=== PATIENT | female | born 1940 | race Caucasian/White ===

== ENCOUNTER 2016-09-07 10:45 | Observation (INO) ==
[2016-09-07] MEDS ORDERED: Ondansetron 4 MG/2 ML VIAL IVP ONE (11:04)
[2016-09-07] MEDS ORDERED: *HR* Morphine 2 MG/ML SYRINGE IVP ONE (11:04)
[2016-09-07] MEDS ORDERED: Aspirin 81 MG TAB.CHEW PO ONE (11:04)
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
[2016-09-07 11:34] LABS: Basophils % 0.3 %; Eosinophils # 0.1 K/mcL (0.0-0.6); Eosinophils % 1.2 %; Hematocrit 43.8 % (35.3-44.9); Hemoglobin 14.7 g/dL (11.5-15.4); Immature Granulocytes % 0.1 % (0-4); Lymphocytes # 1.8 K/mcL (0.6-4.6); Lymphocytes % 23.6 %; Mean Corpuscular HGB Conc 33.6 g/dL (31.6-35.5); Mean Corpuscular Volume 98.2 fL (83.0-100.0); Mean Platelet Volume 11.8 fL (9.4-12.4); Monocytes # 0.5 K/mcL (0.0-1.3); Monocytes % 6.9 %; Neutrophils # 5.1 K/mcL (1.6-8.9); Platelet Count 127 K/mcL (140-400); Red Blood Count 4.46 M/mcL (3.82-4.97); Red Cell Distribution Width 13.3 % (11.5-14.5); Segmented Neutrophils % 67.9 %
[2016-09-07 11:39] LABS: INR 1.1; Prothrombin Time 11.8 Seconds (9.4-12.1)
[2016-09-07 11:41] LABS: Activated Partial Thrombo Time 21.2 Seconds (26.0-36.0)
[2016-09-07 12:12] LABS: BUN/Creatinine Ratio 23 (6-26); Blood Urea Nitrogen 18 mg/dL (7-20); Calcium 9.2 mg/dL (8.6-10.8); Carbon Dioxide 26 mEq/L (19-29); Chloride 108 mEq/L (98-109); Glucose 86 mg/dL (70-99); Osmolality,Calculated 297 (280-300); Potassium 4.5 mEq/L (3.5-4.5); Sodium 143 mEq/L (136-145); eGFR For African Americans > 60 (> 60); eGFR For Non-African Americans > 60 (> 60)
[2016-09-07] MEDS ORDERED: *HR* LORazepam 0.5 MG TABLET PO ONE (13:23)
[2016-09-07] MEDS ORDERED: Naloxone 0.4 MG/ML INJ IVP PRN (14:00)
[2016-09-07] MEDS ORDERED: GI Cocktail 40 ML EACH PO ONE (14:03)
[2016-09-07] MEDS ORDERED: ALPRAZolam 0.5 MG TABLET PO PRN (14:04)
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
--- NOTE | 2016-09-07 19:48 | Electrocardiograph Report ---
[place] [facility] Test Date: 2016-09-07 Pat Name: Micki Steiner Department: [id number] Room: 3B36 Gender: Senior Administrative Assistant: [id number] : 1940 Requested By: Bryan Garrison Order Number: [id number] Reading MD: Romeo Rodriguez MD Measurements Intervals [place] Rate: 72 P: 62 MS: 178 QRS: -1 QRSD: 93 T: 41 QT: 397 QTc: 420 Interpretive Statements SINUS RHYTHM MINIMAL VOLTAGE CRITERIA FOR LVH, CONSIDER NORMAL VARIANT Electronically Signed On 09-07-2016 19:47:22 EDT by Romeo Rodriguez MD
[2016-09-08 00:47] LABS: Immature Granulocytes % 0.2 % (0-4)
[2016-09-08 00:49] LABS: Basophils % 0.3 %; Hematocrit 38.3 % (35.3-44.9); Hemoglobin 12.9 g/dL (11.5-15.4); Immature Platelets 6.2 % (1.1-6.1); Lymphocytes # 1.1 K/mcL (0.6-4.6); Lymphocytes % 18.6 %; Mean Corpuscular HGB Conc 33.7 g/dL (31.6-35.5); Mean Corpuscular Hemoglobin 32.7 pg (28.0-33.3); Monocytes # 0.8 K/mcL (0.0-1.3); Monocytes % 12.7 %; Neutrophils # 4.1 K/mcL (1.6-8.9); Platelet Count 105 K/mcL (140-400); Red Blood Count 3.95 M/mcL (3.82-4.97); Red Cell Distribution Width 13.4 % (11.5-14.5); Segmented Neutrophils % 68.2 %
[2016-09-08 01:02] LABS: BUN/Creatinine Ratio 20 (6-26); Blood Urea Nitrogen 21 mg/dL (7-20); Calcium 8.4 mg/dL (8.6-10.8); Carbon Dioxide 26 mEq/L (19-29); Chloride 107 mEq/L (98-109); Chol/HDL Ratio 2.6 (0-4.9); Cholesterol 108 mg/dL (< 200); Glucose 139 mg/dL (70-99); HDL Cholesterol 41 mg/dL (40-59); LDL Cholesterol,Calculated 57 mg/dL (0-99); Osmolality,Calculated 293 (280-300); Potassium 3.7 mEq/L (3.5-4.5); Sodium 139 mEq/L (136-145); Triglycerides 52 mg/dL (< 150); eGFR For African Americans > 60 (> 60); eGFR For Non-African Americans 51 (> 60)
[2016-09-08] MEDS ORDERED: Regadenoson 0.4 MG/5 ML SYRINGE IVP ONE (06:07)
[2016-09-08] MEDS: Aspirin 81 MG TAB.CHEW PO SCH (09:46)
--- NOTE | 2016-09-08 13:42 | Nuclear Medicine Stress Report ---
Regadenoson Nuclear 2 Name: Micki Steiner Date of Study: 09/08/2016 Date: 1940 Ht: 60.0 in Medical Record#: [id number] Age: 76 Wt: 134.0 lb Gender: Female Order #: [id number] Location: [facility] Room: [facility] Supervising Provider: Adonay Puckett CNP Reading Physician: Torito Dickinson MD, [facility] Ordering Physician: Cally Stephens CNP Primary Care Physician: Genevieve Somers DO Stress Technologist: Grey Feliciano, [employer], [facility] Drywall Boardhanger: Beto Liao Indications: Chest Pain Impression: Baseline low blood pressure of 98/50. Patient had a hypotensive response to regadenoson with lowest BP 84/40. She was given IV fluids. BP increased to 98/45. Patient reported chest heaviness with regadenoson. This is a non-specific finding. Non-specific ST-T wave changes were noted with regadenoson. Gated LVEF > 70%. Perfusion imaging was negative for ischemia or infarct. Clinical correlation is recommended. History: Hypertension Hypercholesteremia Stress Test Summary: Stress Test Type: Pharmacologic Baseline Information: Initial Heart Rate: 78 Blood Pressure: 98/50 Stress Information: Test Terminated Due to (primary): As per protocol Maximum Blood Pressure: 98/48 Maximum Heart Rate: 102 Percent Maximum Heart Rate Achieved: 70 Double Product: [id number] Symptoms: Heaviness Nuclear Summary: SPECT myocardial perfusion imaging using Tc99m Sestamibi given intravenously was performed at rest and following cardiac stress testing. The resting images were obtained following initial dose of 11.6 mCi. Following stress an additional dose of 35.3 mCi was given at peak exercise or 30 seconds post regadenoson infusion. Findings: Stress Note * Resting ECG demonstrated normal sinus rhythm. * No baseline arrhythmias were noted. * Patient reported chest heaviness with regadenoson. This is a non-specific finding. * No arrhythmias were noted during stress. * Non-specific ST-T wave changes were noted with regadenoson. Hemodynamic responses * Baseline low blood pressure of 98/50. Patient had a hypotensive response to regadenoson with lowest BP 84/40. She was given IV fluids. BP increased to 98/45. Study Quality * Study quality is good. Gated EF > 70% * Gated LVEF > 70%. Left Ventricle * The left ventricle is not dilated. * Normal Segmental Perfusion in rest. * Normal segmental perfusion in stress. TID * No evidence of transient ischemic dilatation. Updated by Torito Dickinson MD, [facility] on 09/08/2016 1:37:12 PM electronically signed on 09/08/2016 1:38:03 PM with status of Final
[2016-09-08] MEDS ORDERED: GI Cocktail 40 ML EACH PO ONE (14:49)
--- NOTE | 2016-09-08 14:52 | Internal Med Progress Note ---
Date of Encounter: 09/08/16 Time of Encounter: 14:00 - Assessment and plan (1) Chest pain Current Visit: Yes Status: Acute Assessment and plan: Patient complaining of sternal and located/epigastric chest pain that is coming in waves and severe. It is associated with shortness of breath. She denies nausea or vomiting. CTA of the chest, abdomen, and pelvis unremarkable. Chest x-ray negative. Echocardiogram normal with ejection fraction of 65%. Stress test negative for ischemia or infarct. Acute coronary syndrome ruled out. No signs to suggest acute pulmonic process. We will investigate intra-abdominal processes. ITS Impressions Abdomen/Pelvis CTA 09/07/16 00:00 IMPRESSION: 1. Normal caliber aorta. No acute aortic pathology 2. Moderate to severe atherosclerotic calcification and plaque of the aorta and its branches. 3. No acute pulmonary embolism or acute pulmonary parenchymal process. 4. Cholecystectomy. D/ / 09/07/2016 13:47:14 Alexanrda Falk MD / windy Interpreting Provider: Alexandra Falk MD Chest X-Ray 09/07/16 11:05 IMPRESSION: No acute process. D/ / Madison Mckenna MD / Madison Mckenna MD Interpreting Provider: Madison Mckenna MD Chest CTA 09/07/16 12:37 IMPRESSION: 1. Normal caliber aorta. No acute aortic pathology. 2. Moderate to severe atherosclerotic calcification and plaque of the aorta and its branches. 3. No acute pulmonary embolism or acute pulmonary parenchymal process. 4. Cholecystectomy. D/ / 09/07/2016 13:47:14 Alexandra Falk MD / windy Interpreting Provider: Alexandra Falk MD (2) Epigastric abdominal pain Current Visit: Yes Status: Acute Assessment and plan: Her physical examination is more consistent with epigastric abdominal pain. She is status post cholecystectomy. Her pain is coming in waves and is severe and associated with shortness of breath. She denies any nausea or vomiting. We will check LFTs, amylase/lipase, and bilirubin. There is some mild biliary dilatation as well as dilatation of the common bile duct which can be normal postcholecystectomy, however will check lab values. Patient's pain radiates to the middle part of her back and in between her shoulder blades. This would be more consistent with abdominal etiology rather than pulmonic or thoracic. Patient also has a history of anxiety/panic attacks, she does not think she has ever had a gastric ulcer. We will trial a GI cocktail and monitor. Lengthy history of GERD. We will await lab values. Possible GI consultation. ITS Impressions Abdomen/Pelvis CTA 09/07/16 00:00 IMPRESSION: 1. Normal caliber aorta. No acute aortic pathology. 2. Moderate to severe atherosclerotic calcification and plaque of the aorta and its branches. 3. No acute pulmonary embolism or acute pulmonary parenchymal process. 4. Cholecystectomy. D/ / 09/07/2016 13:47:14 Alexandra Falk MD / windy Interpreting Provider: Alexandra Falk MD Chest CTA 09/07/16 12:37 IMPRESSION: 1. Normal caliber aorta. No acute aortic pathology. 2. Moderate to severe atherosclerotic calcification and plaque of the aorta and its branches. 3. No acute pulmonary embolism or acute pulmonary parenchymal process. 4. Cholecystectomy. D/ / 09/07/2016 13:47:14 Alexandra Falk MD / adriane Interpreting Provider: Alexandra Falk MD (3) Thrombocytopenia Current Visit: Yes Status: Acute Assessment and plan: Unclear causation at this time. Do not have prior lab values to determine chronicity. Patient does not appear to be on any medications that would cause thrombocytopenia. No signs of active bleeding, will continue to trend and investigate. This again possible peptic ulcer disease at this time. (4) GERD (gastroesophageal reflux disease) Current Visit: Yes Status: Chronic Assessment and plan: Uncontrolled, we will try GI cocktail. Possible GI consultation pending clinical outcomes. Qualifiers: Esophagitis presence: esophagitis presence not specified Qualified Code(s) : K21.9 - Gastro-esophageal reflux disease without esophagitis (5) Anxiety Current Visit: Yes Status: Chronic Assessment and plan: Home Xanax has been continued. The patient becomes more anxious, will consider IV lorazepam. (6) DVT prophylaxis Current Visit: Yes Status: Acute Assessment and plan: Observation patient (7) Hypertension Current Visit: Yes Status: Chronic Assessment and plan: Controlled/borderline hypotensive at times, will continue to trend and adjust medications as indicated. Qualifiers: Hypertension type: essential hypertension Qualified Code(s): I10 - Essential (primary) hypertension - Subjective Interval history: Patient seen and examined. On examination, patient sitting upright in bed conversing with her family. She continues to endorse sternally located chest pain. She is also more short of breath and usual. She denies any nausea or vomiting at this time. She states she has been able to tolerate sips of water. - Constitutional Vitals: Temp Pulse Resp BP Pulse Ox 98.0 F 81 20 103/60 99 09/08/16 11:49 09/08/16 11:49 09/08/16 11:49 09/08/16 11:49 09/08/16 11:49 General appearance: Present: mild distress (2/2 pain), A&O X 3, pleasant, answers questions appropriately - Head Head exam: Present: atraumatic, normocephalic - Eye Eye exam: Present: PERRL, conjuntiva pink, sclera anicteric Pupils: Present: PERRL - Neck Neck exam general surgery: Present: supple, trachea midline. Absent: lymphadenopathy - Respiratory Respiratory exam: Present: CTAB. Absent: accessory muscle use, rales, respiratory distress, rhonchi, wheezes - Cardiovascular Cardiovascular exam: Present: RRR, +S1, +S2. Absent: diastolic murmur, gallop, rubs, systolic murmur - GI/Abdominal GI/Abdominal exam: Present: hyperactive bowel sounds, soft, no peritoneal signs. Absent: distended, tenderness - Extremities Exam Extremities exam: Present: warm, radial pulses palpable and symetrical. Absent : calf tenderness, cyanotic, pedal edema - Neurological Exam Neurological exam: Present: alert, CN II-XII intact, oriented X3, no focal deficits, strengths equal and symetr throughout. Absent: pronater drift, facial droop, speech deficit - Skin Skin exam: Present: dry, intact, pallor, warm Internal Medicine: Result - Labs CBC & Chem 7: 09/08/16 00:21 09/08/16 00:21 Labs: Short CBC 09/08/16 Range/Units 00:21 WBC 6.0 (4.3-11.1) K/mcL Hgb 12.9 D (11.5-15.4) g/dL Hct 38.3 (35.3-44.9) % Plt Count 105 L (140-400) K/mcL Neutrophils # 4.1 (1.6-8.9) K/mcL BMP 09/08/16 00:21 Sodium 139 Potassium 3.7 Chloride 107 Carbon Dioxide 26 BUN 21 H Creatinine 1.05 Glucose 139 H Calcium 8.4 L Cardiac Enzymes 09/07/16 09/08/16 Range/Units 18:03 00:21 Troponin I 0.00 0.00 (0-0.03) ng/mL - ABG Interpretation ABG results: PT/INR, D-dimer PT 11.8 Seconds (9.4-12.1) 09/07/16 11:21 D-Dimer 514 ng/mLFEU (0-500) H 09/07/16 11:21 Consult Discharge Plan - Plan Referrals: Santiago Somers DO [Primary Care Provider] -
[2016-09-08] MEDS ORDERED: *HR* HYDROcodone/Acet 5/325 mg TABLET PO PRN (15:10)
[2016-09-08] MEDS ORDERED: *HR* Morphine 2 MG/ML SYRINGE IVP PRN (15:10)
[2016-09-08] MEDS ORDERED: Ondansetron 4 MG/2 ML VIAL IVP PRN (15:10)
[2016-09-08] MEDS ORDERED: *HR* Promethazine 25 MG/ML VIAL IVP PRN (15:10)
[2016-09-08] MEDS ORDERED: Acetaminophen 325 MG TABLET PO PRN (15:10)
[2016-09-08] MEDS ORDERED: *HR* LORazepam 2 MG/ML VIAL IVP PRN (15:11)
[2016-09-08 15:28] LABS: Albumin 2.8 g/dL (3.5-5.0); Bilirubin,Direct 0.4 mg/dL (0.0-0.5); Bilirubin,Indirect 0.4 mg/dL (0.0-1.2); Bilirubin,Total 0.8 mg/dL (0.2-1.2); Globulin 2.8 g/dL (2.4-3.5); Total Protein 5.6 g/dL (6.0-8.3)
[2016-09-08] MEDS: Ketorolac 30 MG/ML VIAL IVP SCH ×2 (17:38→17:40)
[2016-09-08] MEDS: 0.9 % Sodium Chloride 1,000 ML IVC SCH (19:54)
[2016-09-09 05:31] LABS: Alanine Aminotransferase 204 Units/L (0-55); Albumin 2.5 g/dL (3.5-5.0); Albumin/Globulin Ratio 0.7 (1.1-2.2); Alkaline Phosphatase 49 Units/L (38-126); Aspartate Amino Transferase 94 Units/L (5-34); BUN/Creatinine Ratio 17 (6-26); Bilirubin,Direct 0.2 mg/dL (0.0-0.5); Bilirubin,Indirect 0.4 mg/dL (0.0-1.2); Bilirubin,Total 0.6 mg/dL (0.2-1.2); Blood Urea Nitrogen 17 mg/dL (7-20); Calcium 8.2 mg/dL (8.6-10.8); Carbon Dioxide 22 mEq/L (19-29); Chloride 114 mEq/L (98-109); Globulin 3.4 g/dL (2.4-3.5); Glucose 132 mg/dL (70-99); Osmolality,Calculated 297 (280-300); Potassium 4.5 mEq/L (3.5-4.5); Sodium 142 mEq/L (136-145); Total Protein 5.9 g/dL (6.0-8.3); eGFR For African Americans > 60 (> 60); eGFR For Non-African Americans 55 (> 60)
[2016-09-09] MEDS: Ketorolac 30 MG/ML VIAL IVP SCH ×3 (06:02→12:36)
[2016-09-09] MEDS: 0.9 % Sodium Chloride 1,000 ML IVC SCH (09:05)
[2016-09-09] MEDS: Aspirin 81 MG TAB.CHEW PO SCH (09:06)
[2016-09-09 11:31] LABS: Hepatitis A Antibody IgM Nonreactive (Nonreactive); Hepatitis B Core IgM Nonreactive (Nonreactive); Hepatitis B Surface Antigen Nonreactive (Nonreactive); Hepatitis C Virus Antibody Nonreactive (Nonreactive)
--- NOTE | 2016-09-09 15:18 | Discharge Summary ---
Date of Encounter: 09/09/16 Time of Encounter: 13:30 - Discharge Diagnosis (1) Chest pain Priority: Primary Status: Acute Comments: Pain much improved on day of discharge. Acute coronary syndrome ruled out. No acute intra-abdominal processes. Suspect pleurisy versus possible uncontrolled reflux. Follow-up outpatient. (2) Epigastric abdominal pain Priority: Primary Status: Acute (3) Thrombocytopenia Priority: Primary Status: Acute Comments: Unclear causation at this time. Do not have prior lab values to determine chronicity. Patient does not appear to be on any medications that would cause thrombocytopenia. No signs of active bleeding, remained stable. Follow-up outpatient (4) GERD (gastroesophageal reflux disease) Priority: Secondary Status: Chronic Comments: Uncontrolled, GI cocktail without relief. Able to tolerate a regular diet prior to discharge. Will initiate omeprazole, follow-up outpatient. Qualifiers: Esophagitis presence: esophagitis presence not specified Qualified Code(s) : K21.9 - Gastro-esophageal reflux disease without esophagitis (5) Anxiety Priority: Secondary Status: Chronic (6) DVT prophylaxis Priority: Primary Status: Acute Comments: Observation patient (7) Hypertension Priority: Secondary Status: Chronic Comments: Controlled/borderline hypotensive at times, continue home atenolol, check blood pressure daily at home, keep a log for primary care provider. Qualifiers: Hypertension type: essential hypertension Qualified Code(s): I10 - Essential (primary) hypertension - Discharge Medications Prescriptions: Ibuprofen [Motrin] 600 mg PO Q8HR #21 tab Omeprazole [PriLOSEC] 20 mg PO DAILY@0630 #30 capsule.dr Home Medications: ALPRAZolam [Xanax 0.5 MG Tablet] 0.5 mg PO DAILY PRN 09/07/16 [History] Alendronate Sodium [Fosamax] 70 mg PO MO 09/07/16 [History] Aspirin 81 mg PO DAILY 09/07/16 [History] Atenolol [Tenormin] 25 mg PO QPM 09/07/16 [History] Atenolol [Tenormin] 50 mg PO QAM 09/07/16 [History] Atorvastatin [Lipitor] 10 mg PO HS 09/07/16 [History] Calcium Carbonate [Calcium] 500 mg PO DAILY 09/07/16 [History] Cholecalciferol (D-3) [Vitamin D] 1,000 unit PO DAILY 09/07/16 [History] Multivitamin [One Daily Essential] 1 tab PO DAILY 09/07/16 [History] [place]-3/Dha/Epa/Fish Oil [Fish Oil 1,000 mg Softgel] 1,000 mg PO BID 09/07/16 [ History] Paroxetine HCl [Paxil] 10 mg PO DAILY 09/07/16 [History] Vitamin E 100 unit PO DAILY 09/07/16 [History] Ibuprofen [Motrin] 600 mg PO Q8HR #21 tab 09/09/16 [Rx] Omeprazole [PriLOSEC] 20 mg PO DAILY@0630 #30 capsule. 09/09/16 [Rx] Allergies/Adverse Reactions: Allergies cefdinir [From Omnicef] Allergy (Verified 09/07/16 12:42) Rash Sulfa (Sulfonamide Antibiotics) Allergy (Verified 09/07/16 11:01) Rash levofloxacin [From Levaquin] Adverse Reaction (Verified 09/07/16 11:01) Diarrhea Procedures/tests Complete & Pending: Procedures Performed prior 72 hours Category Date Time Status NM suman perf SPECT multi [NM] Routine Exams 09/07/16 06:12 Taken EV echocardiogram Routine Y 09/07/16 14:04 Completed SP pharm nuclear stress Routine Y 09/07/16 14:04 Completed Date of admission: 09/07/16 13:56 Primary care physician: Santiago Somers Discharging clinician: Cally Stephens Anticipated date of discharge: 09/09/16 - Patient Status Disposition: Home, Self-Care Condition: Good Functional capacity at discharge: independent ambulation Overall status at discharge: patient is back to baseline - Discharge Instructions Follow Up With: Santiago Somers DO [Primary Care Provider] - 09/13/16 9:00 am Forms: ED Satisfaction Letter Additional Instructions: Follow-up with primary care provider as scheduled - Diet and Activity Activity: increase activity as tolerated Diet: low fat, low cholesterol, low salt diet Hospital course: Ms. Steiner is a 76 year old female with past medical history of hypertension , hyperlipidemia, GERD, anxiety with panic attacks, cholecystectomy, hysterectomy. Patient presented to the emergency department chief complaint of chest pain. Patient sitting on the morning of presentation, she developed a pressure-like sensation in her chest reported that it felt as if the elephant was sitting on her chest. The pain had increased in severity and she had developed sharp, tearing pain between her shoulder blades. She stated it hurt to take a deep breath and she was short of breath subsequently. She had a few, previous episodes of lightheadedness as well. She denied any palpitations, headache, abdominal pain, nausea vomiting or diarrhea. Workup in the emergency department unremarkable. ECG without acute processes. D-dimer was mildly elevated so a CTA was performed which ruled out a PE. Chest x-ray negative. Patient also had an abdominal/pelvic CTA that was negative for acute processes. She was admitted to the hospitalist service for further evaluation and management. Patient had an echocardiogram that was unremarkable with ejection fraction of 65%. Troponins were negative and she had a nuclear stress test that was negative for ischemia or infarct. Patient continued to have epigastric abdominal pain that was coming in waves and was severe at times and associated with shortness of breath. Acute coronary syndrome ruled out. Mild transaminitis noted trended down during her two night admission. She did have some mild biliary dilatation as well as dilatation of common bile duct which is likely normal postcholecystectomy. Mildly elevated LFTs and bilirubin trended back down. Attempted a GI cocktail without relief. She did state that she was starting to use antacids at home more often since she was started on omeprazole. Her pain was worsened with deep breaths. Possible sources pleurisy , her pain improved with regular NSAID usage while admitted to she was sent home on a 1 week supply of ibuprofen. Also could be gastric ulcer-although less likely given that the GI cocktail was not beneficial or uncontrolled reflux /esophageal spasms. Patient was able to tolerate a regular diet prior to discharge. Her pain much improved on day of discharge. She was discharged home in stable condition with close outpatient follow-up recommended. ITS Impressions Abdomen/Pelvis CTA 09/07/16 00:00 IMPRESSION: 1. Normal caliber aorta. No acute aortic pathology 2. Moderate to severe atherosclerotic calcification and plaque of the aorta and its branches. 3. No acute pulmonary embolism or acute pulmonary parenchymal process. 4. Cholecystectomy. D/ / 09/07/2016 13:47:14 Alexandra Falk MD / windy Interpreting Provider: Alexandra Falk MD Chest X-Ray 09/07/16 11:05 IMPRESSION: No acute process. D/ / Madison Mckenna MD / Madison Mckenna MD Interpreting Provider: Madison Mckenna MD Chest CTA 09/07/16 12:37 IMPRESSION: 1. Normal caliber aorta. No acute aortic pathology. 2. Moderate to severe atherosclerotic calcification and plaque of the aorta and its branches. 3. No acute pulmonary embolism or acute pulmonary parenchymal process. 4. Cholecystectomy. D/ / 09/07/2016 13:47:14 Alexandra Falk MD / windy Interpreting Provider: Alexandra Falk MD Echo with saline contrast impressions: Normal LV systolic function, LVEF 65%. Normal right ventricular size and function. No significant valvular dysfunction. No evidence of pulmonary hypertension. No evidence of intracardiac shunting with agitated saline contrast. Regadenosen nuclear stress test impression: Baseline low blood pressure of 98/ 50. Patient had a hypertensive response to Regadenosen with lowest blood pressure 84/40. She was given IV fluids. BP increased to 98/45. Patient reported chest heaviness with Regadenosen. This is a nonspecific finding. Nonspecific ST-T wave changes were noted with Regadenosen. Gated LVEF is greater than 70%. Perfusion imaging was negative for ischemia or infarct. - Time Spent with Patient Total time spent providing and/or coordinating discharge services: - Constitutional Vitals: Temp Pulse Resp BP Pulse Ox 98.2 F 61 17 157/73 97 09/09/16 11:56 09/09/16 11:56 09/09/16 11:56 09/09/16 11:56 09/09/16 11:56 General appearance: Present: A&O X 3, pleasant, no acute distress, answers questions appropriately - Head Head exam: Present: atraumatic, normocephalic - Eye Eye exam: Present: PERRL, conjuntiva pink, sclera anicteric Pupils: Present: PERRL - Neck Neck exam general surgery: Present: supple, trachea midline. Absent: lymphadenopathy - Respiratory Respiratory exam: Present: CTAB. Absent: accessory muscle use, rales, respiratory distress, rhonchi, wheezes - Cardiovascular Cardiovascular exam: Present: RRR, +S1, +S2. Absent: diastolic murmur, gallop, rubs, systolic murmur - GI/Abdominal GI/Abdominal exam: Present: normal bowel sounds, soft, tenderness (epigasgtric) , no peritoneal signs. Absent: distended - Extremities Exam Extremities exam: Present: warm, radial pulses palpable and symetrical. Absent : calf tenderness, cyanotic, pedal edema - Neurological Exam Neurological exam: Present: alert, CN II-XII intact, normal gait, oriented X3, no focal deficits, strengths equal and symetr throughout. Absent: pronater drift, facial droop, speech deficit - Skin Skin exam: Present: dry, intact, normal color, warm
[2016-09-09 15:52] VITALS: BP 136/75
== END 2016-09-09 17:00 | disposition home or self-care (01) ==
LOC: 3BNU 10:45 → EMEROO 10:45 → 3BNU 14:19
PROVIDERS: ADMIT Internal Medicine Endocrinology, Diabetes & Metabolism; ATTEND Nurse Practitioner Family